=== PATIENT | female | born 1985 | race Caucasian/White ===

== ENCOUNTER → 2016-04-11 10:20 | Outpatient (CLI) | payer MEDICAID | END | disposition home or self-care (01) | LOC: D.US 10:20 | DX: R94.6 Abnormal results of thyroid function studies (principal) ==

== ENCOUNTER 2017-08-12 13:45 | Emergency (ER) | payer MEDICAID ==
[~2017-08-12] VITALS: Ht 180.3 cm; Wt 72.7 kg
[2017-08-12 14:06] VITALS: Ht 180.3 cm; Wt 72.7 kg
[2017-08-12] MEDS ORDERED: [UNRECOGNIZED DRUG - OTHER] (14:08)
[2017-08-12 14:28] LABS: APPEARANCE HAZY (CLEAR); BILIRUBIN NEGATIVE (NEGATIVE); COLOR YELLOW (YELLOW); GLUCOSE NEGATIVE (NEGATIVE); KETONE NEGATIVE (NEGATIVE); NITRITE POSITIVE (NEGATIVE); PROTEIN NEGATIVE (NEGATIVE); UROBILINOGEN NORMAL (NORMAL)
[2017-08-12 14:34] LABS: BACTERIA MANY /hpf (NONE SEEN); EPITHELIAL CELLS 0-5 /hpf (0-5); RED CELLS - URINE 0-5 /hpf (0-5)
[2017-08-12 14:50] LABS: BASOPHILS 0.3 % (0-2); EOSINOPHILS 5.5 % (0-7); HEMATOCRIT 41.7 % (36.0-48.0); HEMOGLOBIN 14.9 g/dL (12-16); IMMATURE GRANULOCYTES 0.2 % (0-5); LYMPHOCYTES 38.8 % (15-50); MCH 31.9 pg (26.0-34.0); MCHC 35.7 g/dL (31.0-37.0); MCV 89.3 fL (80.0-100.0); MEAN PLATELET VOLUME 9.8 fL (7.4-10.4); MONOCYTES 7.6 % (2-11); NEUTROPHILS 47.6 % (40-80); PLATELET COUNT 200 10x3/uL (130-400); RBC 4.67 10x6/uL (4.00-5.40); RDW 12.8 % (11.5-14.5); WBC 6.4 10x3/uL (4.8-10.8)
[2017-08-12 15:05] LABS: ALBUMIN 3.7 g/dL (3.4-5.0); ALKALINE PHOSPHATASE 57 U/L (46-116); ALT (SGPT) 26 U/L (10-68); BILIRUBIN - TOTAL 0.61 mg/dL (0.2-1.3); CALC OSMOLALITY 271 mosm/kg (275-300); CALCIUM 8.8 mg/dL (8.5-10.1); CARBON DIOXIDE 26.9 mmol/L (21.0-32.0); CHLORIDE - SERUM 101 mmol/L (98-107); CREATININE - SERUM 0.9 mg/dL (0.6-1.3); GLUCOSE 98 mg/dL (74-106); PROTEIN - SERUM 7.7 g/dL (6.4-8.2); SODIUM 137 mmol/L (136-145); UREA NITROGEN 7 mg/dL (7-18); eGFR NON AFRICAN AMERICAN 77 mL/min (90-120)
[2017-08-12 15:12] LABS: HCG - QUANTITATIVE (MATERNAL) 1 mIU/mL; LIPASE 81 U/L (73-393)
[2017-08-12 15:50] LABS: HCG URINE NEGATIVE (NEGATIVE)
[2017-08-12 15:57] LABS: UDS - AMPHET NEGATIVE QUAL (NEGATIVE); UDS - BARB NEGATIVE QUAL (NEGATIVE); UDS - BENZO POSITIVE QUAL (NEGATIVE); UDS - COCAINE NEGATIVE QUAL (NEGATIVE); UDS - OPIATE NEGATIVE QUAL (NEGATIVE); UDS - THC POSITIVE QUAL (NEGATIVE)
[2017-08-12 16:08] LABS: UDS - PCP NEGATIVE QUAL (NEGATIVE)
[2017-08-12] MEDS ORDERED: PHENAZOPYRIDIN100 MG PO (16:47)
[2017-08-12] MEDS ORDERED: MACROBID100 MG PO (16:47)
[2017-08-12 17:19] VITALS: BP 132/082
== END 2017-08-12 17:20 | disposition home or self-care (01) ==
LOC: D.ER 13:45
PROVIDERS: Family Medicine
DX: K59.00 Constipation, unspecified (principal); N39.0 Urinary tract infection, site not specified; R30.0 Dysuria; R10.2 Pelvic and perineal pain; Z86.73 Personal history of transient ischemic attack (TIA), and cerebral infarction without residual deficits